=== PATIENT | female | born 1960 | race Caucasian/White ===

== ENCOUNTER → 2016-09-26 | Outpatient (CLI) | payer BC ==
[~2016-09-26] MED LIST: ASPIRIN325 MG PO; DIOVAN HCT 11 TABLET PO; LEVAQUIN750 MG PO; VENTOLIN HFA18 GM IH
== END | disposition home or self-care (01) ==
LOC: RES 10:35
DX: J44.9 Chronic obstructive pulmonary disease, unspecified (principal); I27.2 Other secondary pulmonary hypertension
CPT/HCPCS: 94060; 94726; 94729

== ENCOUNTER → 2017-03-04 | Outpatient (CLI) | payer OTHER | END | disposition home or self-care (01) | LOC: RES 08:00 | DX: Z02.71 Encounter for disability determination (principal) | CPT/HCPCS: 94010; 94729; 94760 ==

== ENCOUNTER 2017-07-04 14:22 | Emergency (ER) | payer BC ==
[~2017-07-04] VITALS: Ht 175.3 cm; Wt 170.6 kg
[2017-07-04 15:00] LABS: HEMATOCRIT 39.5 % (36.0-46.0); HEMOGLOBIN 13.4 G/DL (11.9-15.5); MCHC 33.9 G/DL (30.0-36.0); MCV 88.4 FL (83-99); PLATELET COUNT 421 K/uL (156-360); RBC DIS.WIDTH-CV 12.6 % (11.8-14.6); RED BLOOD COUNT 4.47 M/uL (3.80-5.20); WHITE BLOOD COUNT 10.5 K/uL (4.1-10.2)
[2017-07-04 15:08] LABS: CHLORIDE 102 mEq/L (99-109); POTASSIUM 4.1 mEq/L (3.7-5.4); SODIUM 138 mEq/L (136-147)
[2017-07-04 15:10] LABS: GLUCOSE 91 mg/dL (70-99)
[2017-07-04 15:14] LABS: CREATININE 1.1 mg/dL (0.6-1.3); GFR ESTIMATE (CALCULATED) 55 mL/min/
[2017-07-04 15:15] LABS: UREA NITROGEN (BUN) 13 mg/dL (9-23)
[2017-07-04 15:20] LABS: TROP-I INTERPRETATION NEGATIVE; TROPONIN-I < 0.01 ng/mL (0.0-0.30)
[2017-07-04 16:30] VITALS: BP 123/69
== END 2017-07-04 16:49 | disposition home or self-care (01) ==
LOC: EME 14:22
DX: R07.89 Other chest pain (principal); J44.9 Chronic obstructive pulmonary disease, unspecified; I10 Essential (primary) hypertension; Z86.73 Personal history of transient ischemic attack (TIA), and cerebral infarction without residual deficits; Z79.82 Long term (current) use of aspirin
CPT/HCPCS: 71046; 80048; 84484; 85027; 93005; 99281; 99284